=== PATIENT | female | born 1985 | race Caucasian/White ===

== ENCOUNTER 2016-12-08 12:54 | Emergency (ER) | payer OTHER ==
[2016-12-08 15:19] VITALS: BP 126/73
== END 2016-12-08 17:37 | disposition home or self-care (01) ==
LOC: ED 12:54
DX: M51.36 Other intervertebral disc degeneration, lumbar region (principal); M46.96 Unspecified inflammatory spondylopathy, lumbar region; M51.17 Intervertebral disc disorders with radiculopathy, lumbosacral region